=== PATIENT | female | born 1990 ===

== ENCOUNTER 2019-09-11 16:11 | Inpatient (IN) | payer BC, SELFPAY ==
[2019-09-11 17:07] LABS: #Eosinphils 0.1 thou/uL (0.0-0.7); #Lymphocytes 1.4 thou/uL (1.20-3.40); #Monocytes 0.4 thou/uL (0.11-0.59); #Neutrophils 3.8 thou/uL (1.40-6.50); %Basophils 0.6 % (0.0-1.0); %Eosinophils 2.6 % (0.0-10.0); %Lymphocytes 24.7 % (21.0-51.0); %Monocytes 6.2 % (0.0-10.0); Hemoglobin 7.9 g/dL (12.0-16.0); Mean Corpuscular HGB CONC 33.1 g/dL (32.0-36.0); Mean Corpuscular Hemoglobin 26.8 pg (27.0-31.0); Mean Corpuscular Volume 81.1 fL (78.0-98.0); Mean Platelet Volume 10.3 fL (7.4-10.4); Platelet Count 151 thou/uL (130-400); Red Blood Cell (RBC) Count 2.95 mill/uL (4.20-5.40); White Blood Cell (WBC) Count 5.8 thou/uL (4.8-10.8)
[2019-09-11 17:37] LABS: ALT (SGPT) 79 U/L (8-55); AST (SGOT) 64 U/L (5-34); Albumin 3.7 g/dL (3.5-5.0); Alkaline Phosphatase 95 U/L (40-110); Anion Gap 11 mmol/L (10-20); BUN (Urea Nitrogen) 45 mg/dL (7.0-18.7); Bilirubin, Total 0.3 mg/dL (0.2-1.2); Calc. Creatinine Clearance 0 mL/min (70-130); Calcium 7.1 mg/dL (7.8-10.44); Carbon Dioxide 20 mmol/L (22-29); Chloride 112 mmol/L (98-107); Estimated GFR-MDRD 9; Globulin 2.6 g/dL (2.4-3.5); Glucose 87 mg/dL (70-105); Potassium 4.4 mmol/L (3.5-5.1); Protein, Total 6.3 g/dL (6.0-8.3); Sodium 139 mmol/L (136-145)
[2019-09-11] MEDS ORDERED: hydrALAZINE 20 MG/ML VIAL ONE (17:49)
[2019-09-11 17:56] LABS: BHCG - Serum Negative (NEGATIVE); Pregs Control Background? CLEAR/WHITE (CLR/WHITE); Pregs Control Bar Appear? YES (CONTROL BAR)
[2019-09-11 18:02] LABS: INR-International Normal Ratio 1.1; PTT 29.6 SEC (22.9-36.1); Prothrombin Time 13.7 SEC (12.0-14.7)
[2019-09-11 18:32] LABS: Bilirubin Negative (Negative); Blood, Urine Trace (Negative); Clarity Clear (Clear); Glucose, Urine (Dipstick) Normal (Negative); Leukocyte Negative Leu/uL (Negative); Nitrite Negative (Negative); Protein, Urine (Dipstick) 200 mg/dL (Neg-Trace); RBC/HPF 0-3 HPF (0-3); Squamous Epithelial 0-3 HPF (0-3); Urobilinogen Normal mg/dL (Less than 2)
[2019-09-11 18:33] LABS: Bacteria/HPF 1+ HPF (None Seen)
[2019-09-11] MEDS ORDERED: Acetaminophen 325 MG TAB PO PRN (20:01)
[2019-09-11] MEDS ORDERED: niCARdipine 25 MG in Sodium Chloride 0.9% 250 ML 240 ML IVPB SCH (20:15)
[2019-09-11] MEDS ORDERED: niCARdipine 25 MG in Sodium Chloride 0.9% 250 ML 250 ML IVPB SCH (20:15)
[2019-09-11] MEDS ORDERED: Sodium Bicarbonate 75 MEQ in Sodium Chloride 0.45% 1,000 ML IV SCH (20:30)
--- NOTE | 2019-09-11 20:40 | HP ---
PRIMARY CARE PROVIDER: Unknown. CHIEF COMPLAINT: Problem breathing. HISTORY OF PRESENT ILLNESS: This is a 29-year-old female with diagnosis of hypertension about 3 months ago, on lisinopril for about one month, but no followup, who presents to the emergency room with a complaint of problems breathing. The patient reports that she notices this when she is walking fast or changing from sitting to standing, or if she is working or cleaning. The most recent symptoms started yesterday and progressively worsened to the point that even with sleeping, she has been having difficulty breathing. No precipitating factors. No relieving factors. She denies any fevers, chills, nausea, vomiting , or abdominal pain. She has not tried any medications for this. The patient reports about 3-4 months ago and then 3 weeks ago that she had a fall, that was associated with dizziness and also difficulty with breathing. She was seen in the clinic after the first time and started on lisinopril. She states that it was prescribed for a month, however, did not follow up and did not have a refill. She is not aware what her blood pressures have been but states when in the clinic, it was 180 systolic. Prior to this diagnosis, the patient does report preeclampsia 11 years ago with her first . She denies any need for medication after the ,or with her second .. The patient reports occasional headaches, nonproductive cough. She denies any swelling, vision changes, or changes in her weight. In the emergency room, the patient was found to have a blood pressure of 216/ 126. She was also found to have a creatinine of 5.53, hemoglobin 7.9 and hospitalist called for admission. She received 500 mL of normal saline and 10 mg of hydralazine. The patient is currently receiving 1 unit of packed red blood cells. ALLERGIES: NO KNOWN DRUG ALLERGIES. CURRENT MEDICATIONS: One iron tablet occasionally. PAST MEDICAL HISTORY: The patient reports hypertension and anemia. PAST SURGICAL HISTORY: x2. SOCIAL HISTORY: She lives with her ex-. Her surrogate decision maker is her sister, Doris. She lives in [place]. Denies any alcohol or tobacco. FAMILY HISTORY: Significant for mom with diabetes and hypertension, and unknown family history in father. REVIEW OF SYSTEMS: Negative for fevers, chills, abdominal pain, nausea, vomiting, diarrhea, swelling, or weight changes. Positive for headaches occasionally, nonproductive cough. All remaining review of systems are reviewed and negative. PHYSICAL EXAMINATION: VITAL SIGNS: Blood pressure 198/129, pulse 86, respirations 16, sats 97% on room air, temp 99. GENERAL: Awake, alert, responsive, in no apparent distress. Able to speak in full sentences. HEENT: Her pupils are equal and round. Oral mucosa pink and moist. NECK: Supple, nontender. Thyroid, smooth, symmetric. LYMPHATICS: No palpable cervical or supraclavicular lymphadenopathy. LUNGS: Clear to auscultation bilateral. No audible wheezing, rhonchi, or rales. HEART: Normal S1, S2. Regular rate and rhythm. No significant murmur. ABDOMEN: Soft with present bowel sounds. EXTREMITIES: No edema, clubbing, or cyanosis. SKIN: No visible rashes. NEURO: No focal deficits. PSYCH: Appears euthymic. LABORATORY DATA: Labs reviewed. CBC; 5.8, 7.9, 23.9, and 151. INR 1.1. Chemistry; 139, 4.4, 112, 20, 45, 5.5, 387. LFTS; calcium is 7.1, T-bilirubin 0.3, AST 64, ALT 79, alkaline phosphatase 95, total protein 6.3, and albumin 3.7. Urine shows spec gravity of 1.009, present protein, trace blood, 4-6 white blood cells, 0-3 red blood cells. EKGs personally reviewed, sinus rhythm, normal axis, normal intervals, prolonged QT with a QT corrected of 463. No ST changes. IMPRESSION: 1. Hypertensive emergency in a patient in conjunction with acute kidney injury. 2. Acute kidney injury, unknown precipitant if it is secondary to hypertension, versus undiagnosed chronic kidney disease. 3. Anemia likely secondary to kidney disease. 4. Metabolic acidosis. 5. Hypocalcemia. 6. Elevated LFTs, mild. 7. Symptomatic normocytic anemia. PLAN: 1. Admission to the ICU. 2. Start a Cardene drip to manage her blood pressures, bringing her maps down by about 25% with a systolic pressure goal around 180. 3. IV fluid hydration. Monitoring her renal function, as well as her bicarb. We will choose half-normal saline with 75 mEq of bicarb and gently hydrate. 4. Renal ultrasound, urine electrolytes, urine drug screen. 5. Nephrology consult. Discussed current plan of care with Dr. James sanders, who will see her tomorrow. 6. We will check a parathyroid hormone level, vitamin D level, iron, vitamin B12 and folate level. 7. Monitor her blood counts post 1 unit prbc initiated in the ER. 8. Anticipated length of stay will be based on her renal function, ability to control blood pressure with oral medications, anticipate at least 3 to 4 days. 9. Outpatient evaluation of mildly elevated lft's. 10. DVT prophylaxis. She is ambulatory. We will use SCDs. 11. GI prophylaxis not indicated. She will be written for a renal diet. 12. Code status is full. Surrogate decision maker is her sister, Doris. 13. Reviewed the plan of care with the patient through the use of a business employment specialist. No questions or further needs at the end of evaluation. 14. The patient is at high risk given current presentation. Job ID: [id number] MTDD
[2019-09-11 20:42] LABS: Iron 21 ug/dL (50-170); Iron Binding Capacity, Total 276 mcg/dL (265-497)
[2019-09-11 21:09] LABS: Ferritin 26.67 ng/mL (10-291)
--- NOTE | 2019-09-11 21:30 | ULT ---
Exam: Bilateral renal ultrasound HISTORY: Acute kidney insufficiency. Uncontrolled hypertension COMPARISON: None FINDINGS: Right kidney: Increase cortical echotexture. Atrophic kidney. No hydronephrosis. Right kidney measurements: 6.8 x 2.5 x 3.1 cm. Well-circumscribed hypoechoic focus in the upper pole right kidney measuring 2.2 x 2.0 x 2.1 cm. Incomplete evaluation. Left kidney: Increased cortical echotexture. No hydronephrosis Left kidney measurements 4.8 x 12.1 x 4.6 cm. Urinary bladder: Normal mucosa. Incidental: Left ovarian cyst, measuring 2.8 x 4.1 x 4.0 cm IMPRESSION: 1. Atrophic right kidney 2. No hydronephrosis. 3. Increased renal cortical echotexture bilaterally. 4. Incidental left ovarian cyst Transcribed Date/Time: 09/11/2019 9:47 PM
[2019-09-11 23:03] VITALS: BMI 29.5
[2019-09-12] LABS: Amphetamine Not Detected (NotDetected); Barbiturates Screen Not Detected (NotDetected); Benzodiazepine Screen Not Detected (NotDetected); Cocaine Metabolite Screen Not Detected (NotDetected); Medtox Control Line Valid? VALID (VALID); Medtox Reader # READER 4; Methadone Not Detected (NotDetected); Methamphetamine Not Detected (NotDetected); Opiate Screen Not Detected (NotDetected); Oxycodone Screen Not Detected (NotDetected); Phencyclidine (PCP) Not Detected (NotDetected); THC/Cannabinoid Screen Not Detected (NotDetected); Tricyclic Screen Not Detected (NotDetected)
[2019-09-12 00:09] LABS: Creatinine, Urine 54.27 mg/dL (47-110)
[2019-09-12 00:29] LABS: Vitamin D, 25 Hydroxy 10.3 ng/ml (> 30.0)
[2019-09-12] MEDS ORDERED: hydrALAZINE 20 MG/ML VIAL SLOW IVP PRN ×2 (01:37→08:39)
[2019-09-12 04:50] LABS: #Eosinphils 0.2 thou/uL (0.0-0.7); #Lymphocytes 0.8 thou/uL (1.20-3.40); #Monocytes 0.4 thou/uL (0.11-0.59); #Neutrophils 4.3 thou/uL (1.40-6.50); %Basophils 0.6 % (0.0-1.0); %Eosinophils 3.4 % (0.0-10.0); %Lymphocytes 14.3 % (21.0-51.0); %Monocytes 6.9 % (0.0-10.0); %Neutrophils 74.7 % (42.0-75.0); Hemoglobin 8.4 g/dL (12.0-16.0); Mean Corpuscular HGB CONC 34.4 g/dL (32.0-36.0); Mean Corpuscular Hemoglobin 27.9 pg (27.0-31.0); Mean Corpuscular Volume 81.2 fL (78.0-98.0); Mean Platelet Volume 10.8 fL (7.4-10.4); Platelet Count 149 thou/uL (130-400); Red Blood Cell (RBC) Count 3.01 mill/uL (4.20-5.40); White Blood Cell (WBC) Count 5.7 thou/uL (4.8-10.8)
[2019-09-12 04:58] LABS: Anion Gap 12 mmol/L (10-20); BUN (Urea Nitrogen) 44 mg/dL (7.0-18.7); Calc. Creatinine Clearance 19 mL/min (70-130); Calcium 6.8 mg/dL (7.8-10.44); Carbon Dioxide 18 mmol/L (22-29); Chloride 115 mmol/L (98-107); Estimated GFR-MDRD 10; Glucose 97 mg/dL (70-105); Potassium 4.7 mmol/L (3.5-5.1); Sodium 140 mmol/L (136-145)
[2019-09-12] MEDS ORDERED: Sodium Bicarbonate 150 MEQ in Dextrose 5% in Water 1,000 ML IV SCH ×2 (05:45→18:15)
[2019-09-12] MEDS ORDERED: NIFEdipine XL 60 MG TAB PO SCH (08:00)
[2019-09-12 08:06] LABS: Creatinine, Urine 48.79 mg/dL (47-110)
[2019-09-12] MEDS ORDERED: niCARdipine 25 MG in Sodium Chloride 0.9% 250 ML 240 ML IVPB SCH (09:00)
[2019-09-12] MEDS ORDERED: Ergocalciferol 1.25 MG(50,000 UNITS) CAP PO SCH (09:00)
[2019-09-12] MEDS ORDERED: Amlodipine 10 MG TAB PO SCH (09:00)
[2019-09-12] MEDS ORDERED: FLU VACC QS2019-20(6MOS UP)/PF 60 MCG/0.5 ML SYRINGE IM ONE (09:00)
[2019-09-12] MEDS ORDERED: Carvedilol 6.25 MG TAB PO SCH (10:15)
--- NOTE | 2019-09-12 10:55 | CON ---
DATE OF CONSULTATION: 09/12/2019 SERVICE: Nephrology. REQUESTING PHYSICIAN: Destiny Kang MD. REASON FOR CONSULTATION: Renal insufficiency. HISTORY OF PRESENT ILLNESS: A 29-year-old female with recent diagnosis of hypertension about 4-6 months ago, for which she was started on lisinopril which she only took for 1 month, who now presents to the hospital at the recommendation of the primary care provider. The patient reportedly went to [facility] and was found to have markedly elevated blood pressure and was advised to come to the emergency room where she was found to have systolic blood pressure above 200s. Further evaluation revealed markedly elevated serum creatinine above 5. The patient was admitted to the ICU and started on Cardene infusion. She reportedly had preeclampsia 11 years ago during her 1st , but 2nd was fairly uneventful up to 8 months when she was delivered due to prior history of preeclampsia to avoid complications. The patient did not see any physician since then up until about 4-6 months ago when she was found to have hypertension and started on lisinopril. The patient complains of exertional dyspnea, but denied leg swelling, chest pain, focal weakness, dysuria, hematuria, nausea, vomiting, or back pain. She also denied excessive bruising. She admitted to intermittent headache, for which she takes [id number] medication including Aleve. She was found to have anemia and was given iron infusion at the [facility]. PAST MEDICAL HISTORY: 1. Preeclampsia. 2. Hypertension. 3. Anemia. PAST SURGICAL HISTORY: section x2. FAMILY HISTORY: Significant for diabetes and hypertension in mother. Father's history is unknown. SOCIAL HISTORY: The patient lives with ex-. Denied alcohol, tobacco, or recreational drug use. ALLERGIES: NO KNOWN DRUG ALLERGIES REPORTED. CURRENT MEDICATIONS: Iron tablet. REVIEW OF SYSTEMS: A 12-point review of system performed was negative other than pertinent positives and negatives included in the history of present illness. PHYSICAL EXAMINATION: VITAL SIGNS: Temperature 98.7, pulse 79, respiratory rate 22, SpO2 of 99% on room air, blood pressure is 173/119. GENERAL: Healthy-looking young female, in no obvious distress. Afebrile. Anicteric. Acyanotic. HEENT: Normocephalic, atraumatic. Oral mucosa is moist. NECK: Supple. Nontender with good range of motion. No masses appreciated. CARDIOVASCULAR: Regular rhythm and rate with normal heart sounds 1 and 2. RESPIRATORY: Good air entry bilaterally with no crackle or rhonchi or use of accessory muscles. GI: Obese, soft, nontender, nondistended with normal bowel sounds. EXTREMITIES: Grossly normal looking, atraumatic, with no edema or erythema. Distal pulses are palpable. REFRACTORY GRINDER OPERATOR: Conscious, alert, oriented x3 with appropriate mental status. Cranial nerves 2 through 12 are grossly intact. : I and O in the last 24 hours showed total intake of 1382 and total output of 1400 with negative balance of 18 mL. DIAGNOSTIC DATA: CBC showed WBC count of 5.7, hemoglobin of 8.4, MCV of 81.2, platelet of 149. BMP today showed sodium 140, potassium 4.7, chloride 115, CO2 of 18, BUN 44, creatinine 5.21, calcium 6.8. Note that on presentation yesterday, sodium was 138, potassium 4.9, chloride 112, CO2 of 20, BUN 45, creatinine 5.53, calcium 7.1. Iron chemistry showed serum iron of 21, TIBC 276, ferritin 26. PTH intact is 1005.9. 25-hydroxyvitamin D is 10.3. Vitamin B12 and folate are normal at 315 and 16.9 respectively. CK is 142. Liver function test on presentation showed a total bilirubin of 0.3, AST of 64, ALT of 79, alkaline phosphatase of 95, total protein 6.3, albumin 3.7, globulin 2.6. Urinalysis on presentation showed clear colorless urine with pH of 6.5, specific gravity of 1.009, urine protein of 200 mg/dL. Normal glucose. Negative ketone, nitrite, bilirubin, and leukocyte esterase. Blood is trace. Microscopy showed 0-3 RBC and 4-6 WBC with 1+ bacteria. Urine electrolytes showed a sodium of 81 and creatinine of 54.2 with calculated fractional excretion of sodium of 5.95. Renal ultrasound performed on September 11 showed atrophic right kidney measuring 6.8 x 2.5 x 3.1 with well-circumscribed hypoechoic focus in the upper pole measuring 2.2 x 2 x 2.1. Left kidney measured 4.8 x 12.1 x 4.6. Also, left ovarian cyst measuring 2.8 x 4.1 x 4.0 was incidentally found. ASSESSMENT: 1. Renal failure: This seems to be chronic, but acute component cannot be ruled out. May well be due to uncontrolled hypertension with hypertensive nephrosclerosis. However, unilateral atrophy of right kidney points to possible vascular compromise. History of preeclampsia is concerning for possible thrombotic angiopathy. Secondary hyperparathyroidism with PTH intact of 8009 is consistent with chronic kidney disease. 2. Uncontrolled hypertension, most likely due to chronic kidney disease. Eclampsia may have contributed. The patient was started on Cardene infusion. 3. Secondary hyperparathyroidism. 4. Anemia in chronic kidney disease. The patient also has features of iron-deficiency anemia. 5. Prior history of preeclampsia. 6. Metabolic acidosis, due to chronic kidney disease. PLAN: 1. We will start the patient on calcium channel viktor with the view to weaning of Cardene infusion. We will also add carvedilol. We will monitor blood pressure and adjust calcium channel viktor to get adequate blood pressure control. 2. We will avoid RAAS viktor at this time given renal insufficiency. 3. We will also start the patient on IV fluid therapy with sodium bicarbonate given metabolic acidosis which has worsened with chloride containing fluid to see if there is any reversible component. The patient is at best euvolemic or could be hypovolemic. 4. We will start the patient on vitamin D supplementation. 5. We will also provide IV iron therapy. 6. Urology consult is recommended given right renal mass. We will recheck renal function in the morning. 7. We will also recheck liver function tests given abnormal LFTs on presentation. 8. The patient can be transferred to telemetry if cleared by the primary attending. Further treatment to follow depending on hospital course. We will also get proteinuria quantification with UPC. Many thanks for involving us in the care of this patient. We will follow along with you. Job ID: [id number]
[2019-09-12] MEDS ORDERED: diphenhydrAMINE 25 MG CAP PO PRN (11:44)
[2019-09-12] MEDS ORDERED: Ondansetron ORAL SOLN. 4 MG/5 ML UDCUP PO PRN (11:44)
[2019-09-12] MEDS ORDERED: Benzonatate 100 MG CAP PO PRN (11:44)
[2019-09-12] MEDS ORDERED: Docusate 100 MG CAP PO PRN (11:44)
[2019-09-12] MEDS ORDERED: Melatonin 3 MG TAB PO PRN (11:44)
[2019-09-12] MEDS ORDERED: Ondansetron PF 4 MG/2 ML Vial IVP PRN (11:44)
--- NOTE | 2019-09-12 12:09 | RAD ---
Chest one view HISTORY: Dyspnea. FINDINGS: Cardiac silhouette is magnified and enlarged. Pulmonary vasculature is unremarkable. Medias tinum is midline. No lobar consolidation or evidence of pneumothorax. telemetry monitor leads overlie the chest. IMPRESSION: No active cardiopulmonary abnormalities are demonstrated.
[2019-09-12 12:47] LABS: ALT (SGPT) 60 U/L (8-55); AST (SGOT) 33 U/L (5-34); Albumin 3.2 g/dL (3.5-5.0); Alkaline Phosphatase 82 U/L (40-110); Bilirubin, Direct 0.1 mg/dL (0.1-0.3); Bilirubin, Total 0.3 mg/dL (0.2-1.2); Protein, Total 5.7 g/dL (6.0-8.3)
--- NOTE | 2019-09-12 17:00 | PDOC.HOSPP ---
- Subjective Subjective: Seen and examined. Patient breathing well on room air, though she states that she fells short of breath. Chest x-ray ordered a negative for acute cardiothoracic pathology. Some nausea, likely symptoms of uremia. Added Zofran as needed for nausea and vomiting. Blood pressure medications being adjusted appropriately by nephrology. All questions answered in detail. Patient's family at bedside are happy with plan of care. - Objective Vital Signs & Weight: Vital Signs (12 hours) Temp Pulse BP Pulse Ox 09/12/19 16:00 99.3 F 09/12/19 12:00 98.5 F 09/12/19 11:22 98 145/96 H 09/12/19 08:00 98.3 F 99 09/12/19 07:43 79 173/119 H 09/12/19 07:42 79 173/119 H Weight Weight 169 lb 1.513 oz Most Recent Monitor Data Heart Rate from ECG 99 NIBP 155/100 NIBP BP-Mean 118 Respiration from ECG 20 SpO2 96 I&O: 09/11/19 09/12/19 09/13/19 06:59 06:59 06:59 Intake Total 1382 480 Output Total 1400 1450 Balance -18 -970 Result Diagrams: 09/12/19 04:20 09/12/19 04:20 Radiology Reviewed by me: Yes Hospitalist ROS - Review of Systems All other systems reviewed; all pertinent +/- noted in HPI/Subj - Medication Medications: Active Medications Generic Name Dose Route Start Last Admin Trade Name Freq PRN Reason Stop Dose Admin Acetaminophen 650 mg 09/11/19 20:01 09/12/19 09:06 Tylenol PO 650 mg Q4H PRN Administration Headache/Fever/Mild Pain (1-3) Ergocalciferol 1.25 mg 09/12/19 09:00 09/12/19 11:22 Drisdol PO 1.25 mg Q7DAYS FEROZ Administration Sodium Bicarbonate 150 meq/ 1,150 mls @ 100 mls/hr 09/12/19 05:45 09/12/19 07 :42 Dextrose/Water IV 09/12/19 17:14 1,150 mls NOW FEROZ Administration - Exam General Appearance: NAD Eye: PERRL, anicteric sclera ENT: normocephalic atraumatic, moist mucosa Neck: supple, symmetric, no lymphadenopathy Heart: RRR, no murmur, no gallops, no rubs Respiratory: CTAB, no wheezes, no rales, no ronchi, normal chest expansion Gastrointestinal: soft, non-tender, non-distended, normal bowel sounds, no palpable masses Extremities: no cyanosis, 1+ LE edema (minimal) Skin: no lesions, no rashes Neurological: cranial nerve grossly intact, no weakness, no focal deficits Musculoskeletal: generalized weakness Psychiatric: A&O x 3 Hosp A/P (1) CHERYL (acute kidney injury) Code(s): N17.9 - ACUTE KIDNEY FAILURE, UNSPECIFIED Status: Acute (2) CKD (chronic kidney disease) Code(s): N18.9 - CHRONIC KIDNEY DISEASE, UNSPECIFIED Status: Acute (3) Renal lesion Code(s): N28.9 - DISORDER OF KIDNEY AND URETER, UNSPECIFIED Status: Acute (4) Obesity Code(s): E66.9 - OBESITY, UNSPECIFIED Status: Acute (5) Malignant hypertension Code(s): I10 - ESSENTIAL (PRIMARY) HYPERTENSION Status: Acute (6) History of pre-eclampsia Code(s): Z87.59 - PERSONAL HISTORY OF COMP OF PREG, CHLDBRTH AND THE PUERP Status: Acute - Plan Plan: admitted to the intensive care unit nephrology consultation, recommendations appreciated urology consultation requested for possibility of renal lesion, recommendations appreciated IV drip with cardene for malignant HTN, wean as able IV fluid resuscitation for renal insufficiency nephrology appropriately starting oral antihypertensives patient was taking aleave prior to admission though she denies other herbal supplements or over the couter medications chest x-ray without focal pneumonia or pulmonary edema symptomatic therapy for nausea and vomiting DVT prophylaxis SCDs
--- NOTE | 2019-09-12 17:18 | ULT ---
DUPLEX ULTRASOUND OF THE RENAL ARTERIES: 09/12/19 HISTORY: Renal failure. FINDINGS: The peak systolic velocity in the right renal artery measures 51 cm/s and the left renal artery also measures 51 cm/s. The renal artery to aortic ratio measures 0.50 on both sides. The resistive indices measure 0.56 on the right and 0.65 on the left. The kidneys are echogenic consistent with chronic renal disease. IMPRESSION: No definite evidence of hemodynamically significant renal artery stenosis. POS: DARCIE
[2019-09-12] MEDS: Carvedilol 6.25 MG TAB PO SCH (19:58)
[2019-09-13 04:31] LABS: Albumin 3.1 g/dL (3.5-5.0); Anion Gap 12 mmol/L (10-20); BUN (Urea Nitrogen) 40 mg/dL (7.0-18.7); BUN/Creatinine Ratio 7.78; Calc. Creatinine Clearance 19 mL/min (70-130); Calcium 6.3 mg/dL (7.8-10.44); Carbon Dioxide 24 mmol/L (22-29); Chloride 108 mmol/L (98-107); Estimated GFR-MDRD 10; Glucose 122 mg/dL (70-105); Phosphorus 4.4 mg/dL (2.3-4.7); Sodium 140 mmol/L (136-145)
[2019-09-13] MEDS: Carvedilol 6.25 MG TAB PO SCH ×2 (08:00→20:27)
[2019-09-13] MEDS ORDERED: NIFEdipine XL 60 MG TAB PO SCH (09:00)
[2019-09-13] MEDS ORDERED: Carvedilol 25 MG TAB PO SCH ×2 (09:00→21:00)
[2019-09-13] MEDS ORDERED: Carvedilol 6.25 MG TAB PO SCH (10:00)
[2019-09-13] MEDS ORDERED: Sodium Chloride 0.9% 500 ML IV SCH (12:00)
--- NOTE | 2019-09-13 13:21 | PDOC.HOSPP ---
- Subjective Subjective: Seen and examined. Clinically improving this a.m. Off titratable drip for blood pressure. Nephrology at bedside we had a long conversation with the patient the destination coordinator phone discussing possibility of the patient may needing dialysis it for renal function does not improve. I discussed with her about pericardial effusion secondary to renal insufficiency, and told her that this would improve when her renal function is improved or after dialysis is initiated. Urology input requested for possible renal lesion. CT scan of the abdomen/pelvis pending. All questions answered in detail. Patient understands plan of care. - Objective Vital Signs & Weight: Vital Signs (12 hours) Temp Pulse BP Pulse Ox 09/13/19 12:00 99.1 F 09/13/19 10:52 160/101 H 09/13/19 08:01 92 160/104 H 09/13/19 08:00 99.3 F 160/104 H 99 09/13/19 04:00 98.6 F Weight Weight 169 lb 1.513 oz Most Recent Monitor Data Heart Rate from ECG 97 NIBP 118/67 NIBP BP-Mean 84 Respiration from ECG 33 SpO2 98 I&O: 09/12/19 09/13/19 09/14/19 06:59 06:59 06:59 Intake Total 1382 3146 700 Output Total 1400 3550 1200 Balance -18 -404 -500 Result Diagrams: 09/12/19 04:20 09/13/19 03:45 Radiology Reviewed by me: Yes Hospitalist ROS - Review of Systems All other systems reviewed; all pertinent +/- noted in HPI/Subj - Medication Medications: Active Medications Generic Name Dose Route Start Last Admin Trade Name Freq PRN Reason Stop Dose Admin Acetaminophen 650 mg 09/11/19 20:01 09/12/19 09:06 Tylenol PO 650 mg Q4H PRN Administration Headache/Fever/Mild Pain (1-3) Ergocalciferol 1.25 mg 09/12/19 09:00 09/12/19 11:22 Drisdol PO 1.25 mg Q7DAYS FEROZ Administration Nifedipine 60 mg 09/13/19 09:00 09/13/19 08:01 Procardia Xl PO 60 mg DAILY FEROZ Administration - Exam General Appearance: awake alert Eye: PERRL, anicteric sclera ENT: normocephalic atraumatic, moist mucosa Neck: supple, symmetric, no lymphadenopathy Heart: RRR, no murmur, no gallops, no rubs Respiratory: CTAB, no wheezes, no rales, no ronchi, normal chest expansion Gastrointestinal: soft, non-tender, non-distended, no guarding, no rigidity Extremities: no edema Skin: no lesions, no rashes Neurological: cranial nerve grossly intact, no weakness, no focal deficits Musculoskeletal: no muscle wasting Psychiatric: normal affect, normal behavior, A&O x 3 Hosp A/P (1) CHERYL (acute kidney injury) Code(s): N17.9 - ACUTE KIDNEY FAILURE, UNSPECIFIED Status: Acute (2) CKD (chronic kidney disease) Code(s): N18.9 - CHRONIC KIDNEY DISEASE, UNSPECIFIED Status: Acute (3) Renal lesion Code(s): N28.9 - DISORDER OF KIDNEY AND URETER, UNSPECIFIED Status: Acute (4) Obesity Code(s): E66.9 - OBESITY, UNSPECIFIED Status: Acute (5) Malignant hypertension Code(s): I10 - ESSENTIAL (PRIMARY) HYPERTENSION Status: Acute (6) History of pre-eclampsia Code(s): Z87.59 - PERSONAL HISTORY OF COMP OF PREG, CHLDBRTH AND THE PUERP Status: Acute - Plan Plan: Stable for D/g to Medical unit nephrology consultation, recommendations appreciated urology consultation requested for possibility of renal lesion, recommendations appreciated Off cardene for malignant HTN IV fluid resuscitation for renal insufficiency nephrology appropriately adjusting oral antihypertensives CT abdomen/ pelvis pending to eval possible renal lesion patient was taking aleave prior to admission though she denies other herbal supplements or over the couter medications Echocardiogram with pericardial effusion of small to moderate size without tamponade physiology. Discussed case with Dr Reilly with cardiology who read the Echo, he recommended treating the renal failure to alleviate effusion, he did not think that pericardiocentesis was indicated at this time chest x-ray without focal pneumonia or pulmonary edema symptomatic therapy for nausea and vomiting DVT prophylaxis SCDs
--- NOTE | 2019-09-13 13:46 | PRG ---
DATE OF SERVICE: 09/13/2019 SUBJECTIVE: A 29-year-old female with prior history of preeclampsia and hypertension, admitted with elevated blood pressure and also found to have renal failure. Intermittent headache has subsided. The patient however complains of episodic coughs with some sputum production. She however denied fever, vomiting, or change in bowel habit. OBJECTIVE: VITAL SIGNS: Temperature 99.3, pulse 93, respiratory rate 12, SpO2 of 97 on room air, and blood pressure is 156/89. GENERAL: Young female, in no obvious distress. Afebrile. Anicteric. Acyanotic. HEENT: Normocephalic and atraumatic. Oral mucosa is moist. NECK: Supple. Nontender with good range of motion. No JVD appreciated. CARDIOVASCULAR: Regular rhythm and rate with normal heart sounds 1 and 2. RESPIRATORY: Good air entry bilaterally with no crackle or rhonchi or use of accessory muscles. GI: Full, soft, nontender, and nondistended with normal bowel sounds. EXTREMITIES: Grossly normal looking atraumatic with no edema or erythema. TANK INSULATOR RUBBER: Conscious, alert, and oriented x3 with appropriate mental status. DIAGNOSTIC DATA: Renal function panel showed sodium 140, potassium 4.0, chloride 108, CO2 of 24, BUN 40, creatinine 5.14, glucose 122, calcium 6.3, phosphorus 4.4, and albumin 3.1. Iron chemistry was suggestive of iron deficiency and chronic disease. I and O in the last 24 hours showed total intake of 3146 with total output of 3550 with negative 404 balance. ASSESSMENT: 1. Renal failure: Acute is unclear. History of preeclampsia 8 years ago and uncontrolled hypertension as well as small kidney on the right - chronic kidney disease. Reversible component is possible. Creatinine is down from 5.5 to 5.1 today. The patient is making adequate urine. 2. Anemia of chronic kidney disease. 3. Vitamin D deficiency. 4. Hypocalcemia. 5. Secondary hyperparathyroidism with PTH intact of a 1005. 6. Hypertension: Control is better. PLAN: 1. We will continue IV fluid therapy with sodium bicarbonate infusion. 2. We will also start the patient on IV iron therapy. 3. We will start calcium supplementation. 4. We will increase carvedilol to 25 to get adequate BP control. 5. We will avoid nephrotoxic agents including diuretics and RAAS viktor. 6. Evaluation of right renal mass as per Urology. 7. The patient can be transferred to medical floor. 8. I had extensive discussion with the patient about advanced CKD as well as renal replacement options including dialysis and renal transplant. The patient's relatives will be available tomorrow for further discussion about this. Job ID: [id number]
--- NOTE | 2019-09-13 14:08 | CT ---
CT ABDOMEN AND PELVIS WITHOUT IV PROCESS USING STONE PROTOCOL: HISTORY: A 29-year-old female with hypertension and renal failure. CORRELATION: Ultrasound from 09/11/2019. FINDINGS: Absence of oral and IV contrast reduces the sensitivity of the exam, particularly for evaluation of s olid organs involved. There are mild infiltrates at the lung bases. No calcified gallstones are seen. No free air or free f luid is seen in the abdomen or pelvis. A normal appearing appendix is present. Uterus and ovaries are present. There is a tiny nonobstructing calculus in the inferior pole of the left kidney. No calculi are seen in the right kidney, either ureter or the urinary bladder. No hydroureteronephrosis is seen on either side. The right kidney is atrophic. There is a 2.5 cm exophytic mass arising from the superior pole of the right kidney with attenuation values of 12-14 Hounsfield units, consistent with a simple cyst. No acute osseous abnormalities are seen. IMPRESSION: 1. Mild bibasilar infiltrates. 2. Atrophic right kidney with a 2.5 cm cyst arising from the superior pole. 3. Tiny nonobstructing left renal calculus. POS: [facility]
[2019-09-13] MEDS: Iron, Sodium Ferric Gluconate 250 MG in Sodium Chloride 0.9% 100 ML IVPB SCH (15:08)
--- NOTE | 2019-09-13 15:37 | CON ---
DATE OF CONSULTATION: 09/13/2019 SERVICE: Pulmonary Medicine. REASON FOR CONSULTATION: ICU patient. HISTORY OF PRESENT ILLNESS: The patient is a 29-year-old female with past medical history significant for uncontrolled hypertension. She was in her usual state of health when she presented to the hospital with increasing difficulty breathing. She was found to be hypertensive. Her creatinine was 5, and her hemoglobin was discovered to be quite low. She was given a unit of blood, and 0.5 L of fluid. Ultimately, her breathing improved significantly. As the dust had settled, it is increasingly clear that the patient is not having significant blood loss. It appears as though she has chronic renal insufficiency and sequela associated with that. She has been tucked into the ICU, but overnight, she did not have any significant events. She is breathing comfortably and has no chest discomfort presently. PAST MEDICAL HISTORY: 1. Hypertension. 2. Normocytic anemia. 3. Chronic kidney disease. PAST SURGICAL HISTORY: section x2. SOCIAL HISTORY: Negative for alcohol, tobacco, or illicit drug use. She currently lives in [place]. She has no exposure to chemicals, dust, asbestos, or tuberculosis. FAMILY HISTORY: Noncontributory. ALLERGIES: NO KNOWN DRUG ALLERGIES. MEDICATIONS: List of her inpatient medications was reviewed. No specific updates were made at this time. REVIEW OF SYSTEMS: General; head, ears, eyes, nose, and throat; cardiovascular; respiratory; GI; ; musculoskeletal; neurologic; and skin is negative except as mentioned in the HPI. PHYSICAL EXAMINATION: VITAL SIGNS: Afebrile, pulse 93, blood pressure 156/89, respirations 15, and saturation 98% currently on room air. GENERAL: The patient is awake and alert, in no apparent distress. LUNGS: Wonderful air entry. Minimal dependent crackling is present. No prolonged expiratory phase or wheezing is appreciated. HEART: Normal rate, regular. ABDOMEN: Soft, nontender, and nondistended. Bowel sounds are positive. MUSCULOSKELETAL: No cyanosis or clubbing. There is no pitting in the bilateral lower extremities. NEUROLOGIC: Grossly nonfocal. LABORATORY DATA: WBC 5.7, hemoglobin 8.4, and platelets 149,000. INR 1.1. Creatinine 5.14 and bicarb has improved to 24. Basic metabolic profile is otherwise unremarkable. Calcium 6.3 and gently downtrending. Liver function studies were previously unremarkable except for an ALT that was slightly elevated. PTH is elevated. Folate is normal. Vitamin D25 is low, B12 falls within the normal limits. Urinalysis is unremarkable. Urine drug screen is negative. IMAGING STUDIES: 1. Echocardiogram demonstrates normal ejection fraction with a moderately enlarged left atrium, and a small to moderate pericardial effusion. 2. Chest x-ray demonstrates enlarged cardiac silhouette despite the fact that this is an AP film. There is likely a small pleural effusion on the right. There is fluid in the fissure. Pulmonary vascular congestion is noted. Otherwise, no overt consolidating changes are present. 3. Ultrasound of the abdomen demonstrates no evidence of renal artery stenosis. 4. Renal ultrasound demonstrates chronic medical renal disease. There is no hydronephrosis present. ASSESSMENT: 1. Chronic kidney disease. 2. Anemia of chronic kidney disease. 3. Secondary hyperparathyroidism. 4. Hypertension. DISCUSSION AND PLAN: The patient would likely benefit from epoetin. At this point, she is stable for transition out of the ICU to the medical unit. When she leaves the ICU, she will have no further requirements for inpatient Pulmonary or critical Care opinion, and I will sign off. Please call with additional questions or concerns through time. 70 minutes have been devoted to this patient in various activities. I personally reviewed all imaging studies and laboratory data noted within this document. For fifty percent of this time, I was interacting with the patient at the bedside or coordinating care with the care team. For the remainder of the time I was immediately available to the patient in the hospital unit. Job ID: [id number] MTDD
[2019-09-13] MEDS: Sodium Bicarbonate 150 MEQ in Dextrose 5% in Water 1,000 ML IV SCH (18:20)
--- NOTE | 2019-09-13 20:56 | CON ---
DATE OF CONSULTATION: 09/13/2019 REASON FOR CONSULTATION: Renal failure, hypoechoic focus of the right kidney. HISTORY OF PRESENT ILLNESS: Ms. Best is a 29-year-old female, Maori-speaking, who is admitted to the CCU, as she presented with history of hypertension diagnosed 3 months ago. She had been on lisinopril for about a month, however, did not follow up. She presented to the emergency room due to shortness of breath, she was found to be anemic with hemoglobin of 7.9 and presented with creatinine of 5.53. She was provided multiple hypertensive medications, Nephrology has been consulted. She is previously on Cardizem drip with her blood pressure. She did have an episode of low blood pressure as well, however, currently stable. She denies chest pain, shortness of breath, prior history of pyelonephritis, kidney stones, or renal failure. She denies history of gross hematuria or incontinence. She is G2, P2 with child 11 and 8 years of age. Denies tobacco abuse. Renal ultrasound, which I reviewed myself demonstrated atrophic right kidney with no evidence of hydronephrosis bilaterally. Incidentally noted is a well- circumscribed hypoechoic focus in the right upper pole measuring 2.2 cm. As she is in renal failure, I ordered a CT scan, which demonstrates no evidence of hydronephrosis or hydroureter. Bladder is unremarkable with a right upper pole renal cyst consistent with an ultrasound, PAST MEDICAL HISTORY: Hypertension, preeclampsia, anemia. ALLERGIES: NO KNOWN DRUG ALLERGIES. PAST SURGICAL HISTORY: x2. SOCIAL HISTORY: She lives with her ex- from [place]. Has 2 children. Denies tobacco abuse. FAMILY HISTORY: Positive for diabetes and hypertension. Denies history of family history of end-stage renal disease. REVIEW OF SYSTEMS: Ten-point review of systems as above, otherwise noncontributory. PHYSICAL EXAMINATION: VITAL SIGNS: She is afebrile. Blood pressure variable from 156/89 to 173/119 previously. Urine output 650 mL. GENERAL: The patient appears to be in no acute distress. HEENT: Unremarkable. HEART: Regular rate. LUNGS: Clear. ABDOMEN: Soft. No CVA tenderness. No rigidity. No rebound. : No significant prolapse or mass. EXTREMITIES: No cyanosis, clubbing, or edema. NEUROLOGIC: No gross deficits. PSYCHIATRIC: Appears to be appropriate and intact. PERTINENT LABORATORY DATA: White count of 5, hemoglobin 8.4, presented with prior history of hemoglobin of 7.9, platelet of 149. BUN on admission is 45, creatinine on admission 09/11, is 5.53, currently is 5.14. Of note, the patient is on bicarb drip. PTH is elevated at 1005 consistent with renal failure. UA is yellow, trace blood, however no significant rbc's, 4 to 6 wbc's, 0 to 3 epithelials, 1+ bacteria. However, culture was not obtained. Negative leukocytes, negative nitrites, 200 protein. Renal ultrasound, atrophic right kidney, no evidence of hydronephrosis bilaterally. A well-circumscribed hypoechoic focus in the right upper pole measuring 2.2 x 2.0 x 2.1 cm. The left kidney demonstrates no hydronephrosis measuring 12 x 4.6 x 4.8 cm. The right kidney measures 6.8 x 2.5 x 3.1 cm. An ultrasound of her abdomen demonstrates no significant renal artery stenosis. DIAGNOSTIC STUDIES: CT of the abdomen and pelvis stone protocol which I reviewed myself with Dr. Jasso demonstrates left punctate renal lithiasis in the lower pole, right kidney is atrophic with an exophytic renal cyst with Hounsfield unit about 14 IMPRESSION AND PLAN: Ms. Best is a 29-year-old female, G2, P2, with history of preeclampsia, presents with renal failure, history of anemia. 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 A well-circumscribed hypoechoic renal cyst in the upper pole, 2.2 x 2.0 x 2.1 cm, this is confirmed on CT. Although the Hounsfield unit demonstrates possibly indeterminate renal ultrasound, hypoechoic, is reassuring for benign process. I do recommend followup renal ultrasound in 3-4 month interval for stability. From Urologic perspective, continue medical management. Advised no surgical intervention warranted from Urologic perspective. A straight cath urine culture is obtained , as urine culture from the emergency room was never sent. She denies symptoms of urinary tract infection. will follow urine culture. Job ID: [id number] [facility]
[2019-09-14] MEDS: Sodium Bicarbonate 150 MEQ in Dextrose 5% in Water 1,000 ML IV SCH (06:16)
[2019-09-14 07:31] LABS: Albumin 3.1 g/dL (3.5-5.0); Anion Gap 10 mmol/L (10-20); BUN (Urea Nitrogen) 36 mg/dL (7.0-18.7); BUN/Creatinine Ratio 6.88; Calc. Creatinine Clearance 19 mL/min (70-130); Calcium 6.3 mg/dL (7.8-10.44); Carbon Dioxide 30 mmol/L (22-29); Chloride 105 mmol/L (98-107); Estimated GFR-MDRD 10; Glucose 105 mg/dL (70-105); Phosphorus 4.6 mg/dL (2.3-4.7); Potassium 4.3 mmol/L (3.5-5.1); Sodium 141 mmol/L (136-145)
[2019-09-14] MEDS: Carvedilol 6.25 MG TAB PO SCH ×2 (08:24→20:12)
[2019-09-14] MEDS ORDERED: NIFEdipine XL 60 MG TAB PO SCH (09:00)
[2019-09-14] MEDS ORDERED: NIFEdipine XL 90 MG TAB PO SCH (09:00)
--- NOTE | 2019-09-14 11:46 | PRG ---
DATE OF SERVICE: 09/14/2019 SUBJECTIVE: The patient without complaints, hospitalist in room. OBJECTIVE: VITAL SIGNS: Afebrile and blood pressure remains hypertensive 152/ 102. Urine output 1260. ABDOMEN: Soft, nontender, and nondistended. No CVA tenderness. LABORATORY DATA: Creatinine today is 5.2, which is near her baseline. Unfortunately, UA demonstrates no microscopic hematuria; however, proteinuria noted. Culture pending. IMPRESSION AND PLAN: 1. Ms. Best is a 29-year-old female with renal failure. 2. Hypertension. 3. Anemia. Nephrology workup is in progress. CT of the abdomen and pelvis, which I have reviewed myself, demonstrates left punctate renal lithiasis, not of clinical significance with the right kidney atrophic with exophytic right upper pole renal cyst. A 29-year-old female, G2, P2 with history of renal failure, anemia, and atrophic right kidney, likely congenital. 1. Right upper pole 2.2 x 2 x 2.1 cm renal cyst, left punctate nonobstructing renal calculi. Renal failure and renal insufficiencies due to medical renal disease, and likely history of atrophic right kidney and congenital in nature. Nephrology following for consideration for possible percutaneous biopsies for tissue sampling. Anticoagulation therefore is absolutely contraindicated if the patient will undergo percutaneous biopsy. No surgical intervention is warranted. Job ID: [id number] MTDD
[2019-09-14] MEDS: Iron, Sodium Ferric Gluconate 250 MG in Sodium Chloride 0.9% 100 ML IVPB SCH (12:06)
--- NOTE | 2019-09-14 14:51 | PRG ---
DATE OF SERVICE: 09/14/2019 SERVICE: Nephrology. SUBJECTIVE: A 29-year-old female, admitted due to markedly elevated blood pressure and was subsequently the patient was found to have renal failure of unclear etiology, necessitating nephrology consult. Blood pressure control is better, but renal function has not shown any significant improvement. The patient denied nausea, vomiting, or abdominal pain. Continues to make good urine. OBJECTIVE: VITAL SIGNS: Temperature 98.5, pulse 75, respiratory rate 20, SpO2 of 97% on room air, and blood pressure 152/102. GENERAL: Young female, in no distress. Afebrile. Anicteric. Acyanotic. HEENT: Normocephalic, atraumatic. Oral mucosa is moist. CARDIOVASCULAR: Regular rhythm and rate with normal heart sounds 1 and 2. RESPIRATORY: Good air entry bilaterally with no obvious crackle or rhonchi or use of accessory muscles. GI: Full, soft, nontender, nondistended with normal bowel sounds. EXTREMITIES: Grossly normal looking, atraumatic, with no edema or erythema. GENERAL MANAGER: Conscious, alert, oriented x3 with appropriate mental status. Cranial nerves 2 through 12 are grossly intact. There is no involuntary movement. DIAGNOSTIC DATA: Renal function panel today showed sodium 141, potassium 4.3, chloride 105, CO2 of 30, BUN 36, creatinine 5.23, glucose 105, calcium 6.3, phosphorus 4.6, albumin 3.1. Of note, PTH intact was 1005.9. ASSESSMENT: 1. Renal failure: Chronic kidney disease with possible reversible component. Etiology, however, is unclear. Evidence of chronic kidney disease history of preeclampsia as well as right atrophic kidney and secondary hyperparathyroidism. BUN which was elevated at presentation is trending downwards, however, creatinine has not shown much improvement. The patient continued to make adequate urine. 2. Metabolic acidosis: Due to chronic kidney disease with possible acute kidney injury, improved with sodium bicarbonate infusion. 3. Uncontrolled hypertension: Blood pressure control is better, but still suboptimal. 4. Secondary hyperparathyroidism. 5. Right renal hypoechoic mass: Thought to be benign by Urology. 6. Anemia in chronic kidney disease: Due to chronic kidney disease as well as iron-deficiency anemia. The patient received a unit of packed red blood cells on admission. She is currently getting IV iron therapy. PLAN: 1. I had extensive discussion with the patient and relatives at the bedside. We went over current diagnosis as well as prognoses, care plan, and options. We discussed renal biopsy as well as renal replacement therapy. The patient and family are okay with proceeding with renal biopsy at this time. We will also increase nifedipine to 90 mg p.o. daily to get adequate BP control. 2. We will continue IV iron therapy and recheck CBC in the morning. The patient might need erythrocyte-stimulating agent. 3. We will continue crystalloid, but we changed to half NS plus 75 mEq of sodium bicarbonate to run at 100 mL/h. We will recheck renal function in the morning. 4. We will get CT-guided renal biopsy in line with patient desires. 5. Renal diet to continue. Job ID: [id number]
--- NOTE | 2019-09-14 15:02 | PDOC.HOSPP ---
- Subjective Subjective: Seen and examined. Clinically unchanged. Breathing well on room air. Deny shortness of breath or chest pain. No lower extremity edema or upper extremity edema. Patient's renal function not significantly better or worse. Patient's case briefly discussed with urology who does not feel like any surgical intervention would be of any benefit, I am in agreement with this. Biopsy of the kidney is planned for Monday, I do agree with this and hopefully there is a identifiable pathology that is treatable for this unfortunate 29-year-old female. All questions answered in detail. - Objective Vital Signs & Weight: Vital Signs (12 hours) Temp Pulse Resp BP BP Pulse Ox 09/14/19 11:36 98.7 F 97 18 116/65 95 09/14/19 09:58 75 152/102 H 09/14/19 08:24 152/102 H 09/14/19 07:23 98.5 F 75 20 152/102 H 97 09/14/19 04:26 98.3 F 89 18 150/95 H 93 L Weight Weight 169 lb 1.513 oz Most Recent Monitor Data Heart Rate from ECG 93 NIBP 123/71 NIBP BP-Mean 88 Respiration from ECG 12 SpO2 98 I&O: 09/13/19 09/14/19 09/15/19 06:59 06:59 06:59 Intake Total 3146 1914 Output Total 3550 1260 Balance -404 654 Result Diagrams: 09/12/19 04:20 09/14/19 06:52 Radiology Reviewed by me: Yes Hospitalist ROS - Review of Systems All other systems reviewed; all pertinent +/- noted in HPI/Subj - Medication Medications: Active Medications Generic Name Dose Route Start Last Admin Trade Name Freq PRN Reason Stop Dose Admin Acetaminophen 650 mg 09/11/19 20:01 09/12/19 09:06 Tylenol PO 650 mg Q4H PRN Administration Headache/Fever/Mild Pain (1-3) Carvedilol 12.5 mg 09/13/19 21:00 09/14/19 08:24 Coreg PO 12.5 mg BID FEROZ Administration Ergocalciferol 1.25 mg 09/12/19 09:00 09/12/19 11:22 Drisdol PO 1.25 mg Q7DAYS FEROZ Administration Ferric Sodium Gluconate 120 mls @ 60 mls/hr 09/13/19 13:00 09/14/19 12:06 Complex 250 mg/ Sodium IVPB 09/16/19 14:59 120 mls Chloride 1300 FEROZ Administration Nifedipine 90 mg 09/14/19 09:00 09/14/19 09:58 Procardia Xl PO 90 mg DAILY FEROZ Administration Sodium Chloride 10 ml 09/14/19 09:00 09/14/19 08:25 Flush - Normal Saline IVF 10 ml Q12HR FEROZ Administration - Exam General Appearance: NAD, awake alert Eye: PERRL ENT: normocephalic atraumatic, moist mucosa Neck: supple, symmetric, no lymphadenopathy Heart: RRR, no murmur, no gallops, no rubs Respiratory: CTAB, no wheezes, no rales, no ronchi, no tachypnea Gastrointestinal: soft, non-tender, no guarding, no rigidity Extremities: no edema Skin: no lesions, no rashes Neurological: cranial nerve grossly intact, no focal deficits Musculoskeletal: normal strength, no muscle wasting Psychiatric: normal affect, A&O x 3 Hosp A/P (1) CHERYL (acute kidney injury) Code(s): N17.9 - ACUTE KIDNEY FAILURE, UNSPECIFIED Status: Acute (2) CKD (chronic kidney disease) Code(s): N18.9 - CHRONIC KIDNEY DISEASE, UNSPECIFIED Status: Acute (3) Renal lesion Code(s): N28.9 - DISORDER OF KIDNEY AND URETER, UNSPECIFIED Status: Acute (4) Obesity Code(s): E66.9 - OBESITY, UNSPECIFIED Status: Acute (5) Malignant hypertension Code(s): I10 - ESSENTIAL (PRIMARY) HYPERTENSION Status: Acute (6) History of pre-eclampsia Code(s): Z87.59 - PERSONAL HISTORY OF COMP OF PREG, CHLDBRTH AND THE PUERP Status: Acute - Plan Plan: Medical unit nephrology consultation, recommendations appreciated urology consultation, recommendations appreciated Renal biopsy planned for Monday Off cardene for malignant HTN IV fluid resuscitation for renal insufficiency nephrology appropriately adjusting oral antihypertensives CT abdomen/ pelvis noted patient was taking aleave prior to admission though she denies other herbal supplements or over the couter medications Echocardiogram with pericardial effusion of small to moderate size without tamponade physiology. Discussed case with Dr Reilly with cardiology who read the Echo, he recommended treating the renal failure to alleviate effusion, he did not think that pericardiocentesis was indicated at this time No shortness of breath, chest pain - continue to monitor for clinical change chest x-ray without focal pneumonia or pulmonary edema symptomatic therapy for nausea and vomiting DVT prophylaxis SCDs
[2019-09-14] MEDS: Sodium Bicarbonate 75 MEQ in Sodium Chloride 0.45% 1,000 ML IV SCH (16:30)
[2019-09-15] MEDS: Sodium Bicarbonate 75 MEQ in Sodium Chloride 0.45% 1,000 ML IV SCH (03:14)
[2019-09-15 05:56] LABS: Albumin 3.1 g/dL (3.5-5.0); Anion Gap 15 mmol/L (10-20); BUN (Urea Nitrogen) 38 mg/dL (7.0-18.7); BUN/Creatinine Ratio 7.01; Calc. Creatinine Clearance 18 mL/min (70-130); Calcium 6.5 mg/dL (7.8-10.44); Carbon Dioxide 27 mmol/L (22-29); Chloride 105 mmol/L (98-107); Estimated GFR-MDRD 9; Glucose 90 mg/dL (70-105); Phosphorus 5.6 mg/dL (2.3-4.7); Potassium 4.7 mmol/L (3.5-5.1); Sodium 142 mmol/L (136-145)
[2019-09-15 06:15] LABS: #Eosinphils 0.1 thou/uL (0.0-0.7); #Monocytes 0.4 thou/uL (0.11-0.59); #Neutrophils 4.3 thou/uL (1.40-6.50); %Basophils 0.7 % (0.0-1.0); %Eosinophils 2.1 % (0.0-10.0); %Lymphocytes 17.4 % (21.0-51.0); %Neutrophils 73.8 % (42.0-75.0); Hemoglobin 8.1 g/dL (12.0-16.0); Large Platelets SLIGHT; MDiff Complete? YES; Mean Corpuscular Hemoglobin 27.4 pg (27.0-31.0); Mean Corpuscular Volume 83.1 fL (78.0-98.0); Mean Platelet Volume 10.6 fL (7.4-10.4); Platelet Count 136 thou/uL (130-400); Platelet Morphology Comment Appears Adequate; RBC Distribution Width 14.8 % (11.5-14.5); Red Blood Cell (RBC) Count 2.96 mill/uL (4.20-5.40); White Blood Cell (WBC) Count 5.8 thou/uL (4.8-10.8)
[2019-09-15] MEDS ORDERED: NIFEdipine XL 90 MG TAB PO SCH (07:04)
[2019-09-15] MEDS: Carvedilol 6.25 MG TAB PO SCH ×2 (08:25→21:35)
[2019-09-15] MEDS: NIFEdipine XL 60 MG TAB PO SCH (08:26)
--- NOTE | 2019-09-15 09:27 | PRG ---
DATE OF SERVICE: 09/15/2019 SERVICE: Nephrology. SUBJECTIVE: A 29-year-old female admitted due to uncontrolled hypertension and was found to have renal failure. Further evaluation revealed secondary hyperparathyroidism, anemia in CKD as well as atrophic right kidney, all consistent with chronic kidney disease. Attempts with rehydration have not improved renal function. Biopsy is planned for tomorrow. No new problem. OBJECTIVE: VITAL SIGNS: Temperature 98.9, pulse 85, respiratory rate 18, SpO2 of 95% on room air, and blood pressure is 145/98. GENERAL: Young female in no obvious distress. Afebrile. Anicteric. Acyanotic. HEENT: Normocephalic and atraumatic. Oral mucosa is moist. CARDIOVASCULAR: Regular rhythm and rate with normal heart sounds one and two. RESPIRATORY: Good air entry bilaterally with no crackle or rhonchi or use of accessory muscles. GI: Full, soft, nontender, and nondistended with normal bowel sounds. EXTREMITIES: Grossly normal looking atraumatic with no edema or erythema. BUSINESS SYSTEMS TECHNICIAN: Conscious, alert, and oriented x3 with appropriate mental status. DIAGNOSTIC DATA: CBC showed WBC count of 5.8, hemoglobin of 8.1, MCV of 83.1, and platelet of 136. Renal function panel showed sodium 142, potassium 4.7, chloride 105, CO2 of 27, BUN 38, creatinine 5.42, calcium 6.5, phosphorus 5.6, and albumin 3.1. ASSESSMENT: 1. Renal failure: Acute remains a challenge, most likely acute on chronic. Given that, there is no overt evidence of chronic kidney disease given right atrophic kidney as well as secondary hyperparathyroidism and anemia in chronic kidney disease. So far, there is no any improvement in renal function with IV fluid therapy. We will plan on getting renal biopsy tomorrow. We will also discontinue IV fluid therapy at this time as it is not providing any utility. 2. Anemia in chronic kidney disease: We will continue IV iron. 3. Hypertension: We will decrease the nifedipine to 60. In view of the further, we will be discontinuing fluid therapy. 4. Secondary hyperparathyroidism due to renal failure. We will start the patient on calcitriol and Sensipar. 5. Vitamin D deficiency: We will continue vitamin D supplementation. 6. Hypocalcemia: Due to vitamin D deficiency, we will continue calcium supplementation. 7. Further treatment to follow. We will have further discussion about replacement therapy with the patient and family tomorrow after renal biopsy and we will consult General Surgery for access placement. Job ID: [id number]
--- NOTE | 2019-09-15 10:24 | PDOC.HOSPP ---
- Subjective Subjective: Seen and examined. Patient remains clinically unchanged. No significant edema on the legs or arms. Breathing well on room air. Many questions asked about the process of renal biopsy and hemodialysis. Patient it remains optimistic that she will not required hemodialysis, I informed her depends on what we find on a renal biopsy if she has a treatable condition or not. All questions answered in detail. Patient happy with plan of care. - Objective Vital Signs & Weight: Vital Signs (12 hours) Temp Pulse Resp BP BP Pulse Ox 09/15/19 08:26 80 09/15/19 08:25 145/98 H 09/15/19 07:21 98.9 F 85 18 145/98 H 95 Weight Weight 169 lb 1.513 oz Most Recent Monitor Data Heart Rate from ECG 93 NIBP 123/71 NIBP BP-Mean 88 Respiration from ECG 12 SpO2 98 I&O: 09/14/19 09/15/19 09/16/19 06:59 06:59 06:59 Intake Total 1914 2400 Output Total 1260 Balance 654 2400 Result Diagrams: 09/15/19 04:55 09/15/19 04:55 Radiology Reviewed by me: Yes Hospitalist ROS - Review of Systems All other systems reviewed; all pertinent +/- noted in HPI/Subj - Medication Medications: Active Medications Generic Name Dose Route Start Last Admin Trade Name Freq PRN Reason Stop Dose Admin Acetaminophen 650 mg 09/11/19 20:01 09/12/19 09:06 Tylenol PO 650 mg Q4H PRN Administration Headache/Fever/Mild Pain (1-3) Carvedilol 12.5 mg 09/13/19 21:00 09/15/19 08:25 Coreg PO 12.5 mg BID FEROZ Administration Ergocalciferol 1.25 mg 09/12/19 09:00 09/12/19 11:22 Drisdol PO 1.25 mg Q7DAYS FEROZ Administration Ferric Sodium Gluconate 120 mls @ 60 mls/hr 09/13/19 13:00 09/14/19 12:06 Complex 250 mg/ Sodium IVPB 09/16/19 14:59 120 mls Chloride 1300 FEROZ Administration Sodium Bicarbonate 75 meq/ 1,075 mls @ 100 mls/hr 09/14/19 10:15 09/15/19 03: 14 Sodium Chloride IV 1,075 mls INF FEROZ Administration Nifedipine 60 mg 09/15/19 09:00 09/15/19 08:26 Procardia Xl PO 60 mg DAILY FEROZ Administration Sodium Chloride 10 ml 09/14/19 09:00 09/14/19 20:14 Flush - Normal Saline IVF Not Given Q12HR FEROZ - Exam General Appearance: NAD, awake alert Eye: PERRL ENT: normocephalic atraumatic, moist mucosa Neck: supple, symmetric, no lymphadenopathy Heart: no murmur, no gallops, no rubs Respiratory: CTAB, no wheezes, no rales, no ronchi, no tachypnea Gastrointestinal: soft, non-tender, non-distended, no guarding, no rigidity Extremities: no edema Skin: no lesions, no rashes Neurological: no weakness, no focal deficits Musculoskeletal: normal tone, normal strength Psychiatric: A&O x 3 Hosp A/P (1) CHERYL (acute kidney injury) Code(s): N17.9 - ACUTE KIDNEY FAILURE, UNSPECIFIED Status: Acute (2) CKD (chronic kidney disease) Code(s): N18.9 - CHRONIC KIDNEY DISEASE, UNSPECIFIED Status: Acute (3) Renal lesion Code(s): N28.9 - DISORDER OF KIDNEY AND URETER, UNSPECIFIED Status: Acute (4) Obesity Code(s): E66.9 - OBESITY, UNSPECIFIED Status: Acute (5) Malignant hypertension Code(s): I10 - ESSENTIAL (PRIMARY) HYPERTENSION Status: Acute (6) History of pre-eclampsia Code(s): Z87.59 - PERSONAL HISTORY OF COMP OF PREG, CHLDBRTH AND THE PUERP Status: Acute - Plan Plan: Medical unit nephrology consultation, recommendations appreciated urology consultation, recommendations appreciated Renal biopsy planned for Monday Off cardene for malignant HTN IV fluid resuscitation for renal insufficiency, as needed per Nephrology nephrology appropriately adjusting oral antihypertensives CT abdomen/ pelvis noted patient was taking Aleave prior to admission though she denies other herbal supplements or over the couter medications Echocardiogram with pericardial effusion of small to moderate size without tamponade physiology. Discussed case with Dr Reilly with cardiology who read the Echo, he recommended treating the renal failure to alleviate effusion, he did not think that pericardiocentesis was indicated at this time No shortness of breath, chest pain - continue to monitor for clinical change chest x-ray without focal pneumonia or pulmonary edema symptomatic therapy for nausea and vomiting DVT prophylaxis SCDs
--- NOTE | 2019-09-15 11:43 | PRG ---
DATE OF SERVICE: 09/15/2019 SUBJECTIVE: The patient without complaints. Denies flank pain, dysuria, or gross hematuria. OBJECTIVE: VITAL SIGNS: Afebrile, however, blood pressure remains elevated, asymptomatic. Good urine output 1260. ABDOMEN: Soft, nontender, and nondistended. No rigidity. No rebound. HEART: Regular rate. LUNGS: Clear. EXTREMITIES: No cyanosis, clubbing, or edema. PERTINENT LABORATORY DATA: White count is 5.8, hemoglobin 8.1, and platelet 136. Renal function stable. Persistent renal insufficiency failure, creatinine of 5.4. IMPRESSION AND PLAN: 1. Ms. Best is a 29-year-old female presents with anemia and renal failure. 2. Hypertension. 3. Anemia. 4. Atrophic right kidney, congenital, left punctate renal lithiasis, not warranting treatment. Incidental simple right upper pole renal cyst. Renal biopsy is scheduled for tomorrow. Culture is negative. Nephrology on case, plan possible hemodialysis pending biopsy results. No surgical intervention is warranted. Continue medical management. Job ID: [id number] [facility]
[2019-09-16 06:13] LABS: Albumin 3.2 g/dL (3.5-5.0); Anion Gap 14 mmol/L (10-20); BUN (Urea Nitrogen) 37 mg/dL (7.0-18.7); BUN/Creatinine Ratio 6.68; Calc. Creatinine Clearance 18 mL/min (70-130); Calcium 7.1 mg/dL (7.8-10.44); Carbon Dioxide 23 mmol/L (22-29); Chloride 109 mmol/L (98-107); Estimated GFR-MDRD 9; Glucose 85 mg/dL (70-105); Phosphorus 5.5 mg/dL (2.3-4.7); Potassium 4.9 mmol/L (3.5-5.1); Sodium 141 mmol/L (136-145)
[2019-09-16 06:35] LABS: INR-International Normal Ratio 1.1; Prothrombin Time 14.5 SEC (12.0-14.7)
[2019-09-16 07:12] LABS: Hemoglobin 8.1 g/dL (12.0-16.0); Mean Corpuscular HGB CONC 32.4 g/dL (32.0-36.0); Mean Corpuscular Volume 83.4 fL (78.0-98.0); Mean Platelet Volume 10.1 fL (7.4-10.4); Platelet Count 129 thou/uL (130-400); RBC Distribution Width 14.6 % (11.5-14.5); White Blood Cell (WBC) Count 6.4 thou/uL (4.8-10.8)
--- NOTE | 2019-09-16 07:26 | PRG ---
DATE OF SERVICE: 09/16/2019 SUBJECTIVE: The patient without complaints. OBJECTIVE: VITAL SIGNS: Afebrile, continues to be hypertensive, blood pressure 143/93. GENERAL: The patient is asymptomatic. ABDOMEN: Soft, nontender, and nondistended. No CVA tenderness. LABORATORY DATA: White count 5.8, hemoglobin 8.1, and platelet 136. Creatinine 5.5, unchanged from initial admission. Urine culture negative. IMPRESSION AND PLAN: 1. A 29-year-old female with renal failure. 2. Atrophic right kidney, chronic, likely congenital. 3. Left nonobstructing punctate renal lithiasis. 4. Right upper pole incidental simple cyst, on CT. Await renal biopsy, hemodialysis plan. Job ID: [id number] MTDD
[2019-09-16] MEDS: Iron, Sodium Ferric Gluconate 250 MG in Sodium Chloride 0.9% 100 ML IVPB SCH ×2 (07:34→14:47)
[2019-09-16] MEDS: Carvedilol 6.25 MG TAB PO SCH (08:56)
[2019-09-16] MEDS: NIFEdipine XL 60 MG TAB PO SCH (08:56)
[2019-09-16] MEDS ORDERED: Carvedilol 6.25 MG TAB PO SCH (10:00)
[2019-09-16] MEDS ORDERED: Fentanyl 100 MCG/2 ML VIAL ONE (10:56)
[2019-09-16] MEDS ORDERED: Sodium Bicarbonate 2.5 MEQ/5 ML VIAL ONE (10:56)
[2019-09-16] MEDS ORDERED: Midazolam HCl 2 mg/2 ml Vial ONE (10:56)
--- NOTE | 2019-09-16 13:01 | PDOC.HOSPP ---
- Subjective Encounter Date: 09/16/19 Encounter Time: 12:59 Subjective: Doing fine. Tolerated the biopsy without difficulty. No concerns. - Objective Vital Signs & Weight: Vital Signs (12 hours) Temp Pulse Resp BP BP Pulse Ox 09/16/19 10:47 155/96 H 09/16/19 08:00 99.1 F 95 16 165/109 H 96 Weight Weight 169 lb 1.513 oz Most Recent Monitor Data Heart Rate from ECG 93 NIBP 123/71 NIBP BP-Mean 88 Respiration from ECG 12 SpO2 98 I&O: 09/15/19 09/16/19 09/17/19 06:59 06:59 06:59 Intake Total 2400 1200 Balance 2400 1200 Result Diagrams: 09/16/19 07:03 09/16/19 05:29 Hospitalist ROS - Medication Medications: Active Medications Generic Name Dose Route Start Last Admin Trade Name Freq PRN Reason Stop Dose Admin Acetaminophen 650 mg 09/11/19 20:01 09/12/19 09:06 Tylenol PO 650 mg Q4H PRN Administration Headache/Fever/Mild Pain (1-3) Ergocalciferol 1.25 mg 09/12/19 09:00 09/12/19 11:22 Drisdol PO 1.25 mg Q7DAYS FEROZ Administration Ferric Sodium Gluconate 120 mls @ 60 mls/hr 09/13/19 13:00 09/16/19 07:34 Complex 250 mg/ Sodium IVPB 09/16/19 14:59 Not Given Chloride 1300 FEROZ Nifedipine 60 mg 09/15/19 09:00 09/16/19 08:56 Procardia Xl PO 60 mg DAILY FEROZ Administration Sodium Chloride 10 ml 09/14/19 09:00 09/16/19 08:57 Flush - Normal Saline IVF 10 ml Q12HR FEROZ Administration - Exam General Appearance: NAD, awake alert Heart: RRR, no murmur, no gallops, no rubs, normal peripheral pulses Respiratory: CTAB, no wheezes, no rales, no ronchi, normal chest expansion, no tachypnea, normal percussion Gastrointestinal: soft, non-tender, non-distended, normal bowel sounds, no palpable masses, no hepatomegaly, no splenomegaly, no bruit Extremities: no cyanosis, no clubbing, no edema Hosp A/P (1) Renal cyst Code(s): N28.1 - CYST OF KIDNEY, ACQUIRED Status: Acute (2) CHERYL (acute kidney injury) Code(s): N17.9 - ACUTE KIDNEY FAILURE, UNSPECIFIED Status: Acute (3) CKD (chronic kidney disease) Code(s): N18.9 - CHRONIC KIDNEY DISEASE, UNSPECIFIED Status: Acute (4) Malignant hypertension Code(s): I10 - ESSENTIAL (PRIMARY) HYPERTENSION Status: Acute - Plan Biopsy has been obtained. Chronicity of renal disease is not entirely clear. No prior labs for comparison. Likely chronic. Nephrology following. Considering dialysis pending results.
--- NOTE | 2019-09-16 13:44 | CT ---
CT-guided biopsy left kidney Conscious sedation: At least 30 minutes were spent with the patient for conscious sedation. HISTORY: Renal failure. FINDINGS: After explaining the procedure and answering all questions, limited CT imaging of the kidne ys was performed with patient prone. Sterile technique, buffered local anesthesia, CT guidance, conscious sedation, and a left posterior a pproach were used to carefully advance a 17-gauge trocar needle to the peripheral cortex of the left kidney at the avascular zone. Position confirmed with CT. A total of 3 18-gauge core biopsy specimens were obtained and submitted to Dr. Garcia from pathology w ho confirmed specimen adequacy. Needle was removed. No evidence of complication. Patient tolerated the procedure well and was returne d in unchanged condition. IMPRESSION: Technically successful CT-guided biopsy left kidney. Pathology is pending.
[2019-09-16] MEDS: Carvedilol 25 MG TAB PO SCH (21:32)
[2019-09-17 07:03] LABS: Albumin 3.4 g/dL (3.5-5.0); Anion Gap 14 mmol/L (10-20); BUN (Urea Nitrogen) 39 mg/dL (7.0-18.7); BUN/Creatinine Ratio 6.78; Calc. Creatinine Clearance 17 mL/min (70-130); Calcium 7.2 mg/dL (7.8-10.44); Carbon Dioxide 20 mmol/L (22-29); Chloride 108 mmol/L (98-107); Estimated GFR-MDRD 9; Glucose 90 mg/dL (70-105); Sodium 137 mmol/L (136-145)
[2019-09-17] MEDS ORDERED: Sevelamer Carbonate 800 MG TAB PO SCH (08:00)
[2019-09-17] MEDS ORDERED: Cinacalcet HCl 30 MG TAB PO SCH (08:00)
--- NOTE | 2019-09-17 08:19 | PRG ---
DATE OF SERVICE: 09/17/2019 SUBJECTIVE: The patient without complaints, tolerated renal biopsy yesterday uneventfully. OBJECTIVE: VITAL SIGNS: Stable, however, remains hypertensive. I's and O's 1200 of urine out. ABDOMEN: Soft. No rigidity. No rebound. No flank ecchymosis. LABORATORY DATA: No CBC today. Renal function today for creatinine of 5.75, which is her baseline. Urine culture negative. IMPRESSION AND PLAN: 1. A 29-year-old female with history of renal failure. 2. Atrophic right kidney with small renal cyst, simple on CT. 3. Left nonobstructing punctate renal calculi, postop day #1, status post left percutaneous biopsy by IR. Await pathology results. Hemodialysis plans per Nephrology. Job ID: [id number] MTDD
[2019-09-17] MEDS: NIFEdipine XL 60 MG TAB PO SCH (08:20)
[2019-09-17] MEDS: Carvedilol 25 MG TAB PO SCH (08:20)
[2019-09-17 11:15] VITALS: BP 129/86; TEMP 98.3
--- NOTE | 2019-09-17 15:07 | PRG ---
DATE OF SERVICE: 09/17/2019 SERVICE: Nephrology. SUBJECTIVE: A 29-year-old female, admitted due to uncontrolled hypertension and was found to have renal failure. Treatment with crystalloid did not improve renal function. The patient subsequently had a renal biopsy on September 17 and result is awaited at this time. She has no new complaints. Denied nausea, vomiting, shortness of breath, or fever. OBJECTIVE: VITAL SIGNS: Temperature 98.3, pulse 83, respiratory rate 18, SpO2 of 95% on room air, and blood pressure is 129/86. GENERAL: Young female, in no obvious distress. Afebrile. Anicteric. Acyanotic. HEENT: Normocephalic and atraumatic. Oral mucosa is moist. NECK: Supple. Nontender with good range of motion. No JVD appreciated. CARDIOVASCULAR: Regular rhythm and rate. Normal heart sounds one and two. No murmur was appreciated. RESPIRATORY: Good air entry bilaterally with no crackle or rhonchi or use of accessory muscles. GI: Full, soft, nontender, and nondistended with normal bowel sounds. EXTREMITIES: Grossly normal looking atraumatic with no edema or edema. [employer]: Conscious, alert, and oriented x3 with appropriate mental status. Cranial nerves 2 through 12 are grossly intact. DIAGNOSTIC DATA: Renal function panel shows sodium 137, potassium 5.0, chloride 108, CO2 of 20, BUN 39, creatinine 5.75, glucose 90, calcium 7.2, phosphorus 6.0, and albumin 3.4. ASSESSMENT: 1. Renal failure: Etiology is unclear. The patient is status post renal biopsy, result is awaited at this time. There was no improvement with crystalloid. The patient has clear evidence of chronic kidney disease, which is currently at stage 5. Ultrasounds showed atrophic right kidney and echogenic kidneys. The patient also has a secondary hyperparathyroidism with PTH above 1000 as well as anemia in chronic kidney disease. I did discuss renal replacement therapy including dialytic treatment as well as transplant with the patient as well as need to prepare for dialysis, but the patient would prefer to wait till results of biopsy is obtained to see if the kidney function will improve. 2. Hypertension: Control is adequate. 3. Secondary hyperparathyroidism. 4. Anemia in chronic kidney disease: Due to iron deficiency as well as chronic kidney disease. 5. Vitamin D deficiency. 6. Metabolic acidosis. 7. Hyperphosphatemia. PLAN: The patient can be discharged home on current medications, which include nifedipine 60 mg daily, Coreg 25 mg b.i.d., Sensipar, vitamin D supplementation, and phosphate binder. The patient was instructed to repeat renal function test on September 18, 2019, and follow up in the office on September 23, 2019. Hopefully, we will have the renal biopsy and will discuss that with the patient and make subsequent plans. The patient also was instructed to report to the emergency room should she have any medical problems of fluid overload or shortness of breath in the interim. Job ID: [id number]
== END 2019-09-17 13:38 | disposition home or self-care (01) | DRG 683 ==
LOC: ERS 16:11 → CCU 22:43 → T4-A 09-13 16:26
PROVIDERS: ADMIT Family Medicine; ATTEND Family Medicine
PROC: 0TB13ZX Excision of Left Kidney, Percutaneous Approach, Diagnostic (ICD-10-PCS; principal; 2019-09-11)
DX: N17.9 Acute kidney failure, unspecified (principal); E87.2 Acidosis; I16.1 Hypertensive emergency; I31.3 Pericardial effusion (noninflammatory); Q60.3 Renal hypoplasia, unilateral; I12.9 Hypertensive chronic kidney disease with stage 1 through stage 4 chronic kidney disease, or unspecified chronic kidney disease; N18.9 Chronic kidney disease, unspecified; D63.1 Anemia in chronic kidney disease; N25.81 Secondary hyperparathyroidism of renal origin; D50.9 Iron deficiency anemia, unspecified; E55.9 Vitamin D deficiency, unspecified; N28.1 Cyst of kidney, acquired; E66.9 Obesity, unspecified; N20.0 Calculus of kidney; Z87.59 Personal history of other complications of pregnancy, childbirth and the puerperium; Z68.29 Body mass index [BMI] 29.0-29.9, adult; Z79.899 Other long term (current) drug therapy
CPT/HCPCS: 36415; 36430; 50200; 71045; 74176; 76770; 77012; 80048; 80053; 80069; 80076; 80306; 81003; 81015; 82306; 82550; 82570; 82607; 82728; 82746; 83540; 83550; 83970; 84156; 84300; 84703; 85025; 85027; 85610; 85730; 86850; 86900; 86901; 87086; 88329; 93005; 93306; 93975; 96361; 96365; 96374; J0360; J2250; J2916; J3010; J3490; J7050; J7070; P9016